=== PATIENT | male | born 1975 | race Caucasian/White ===

== ENCOUNTER 2016-12-11 14:07 | Emergency (ER) | payer OTHER, MEDICAID ==
[2016-12-11 14:07] VITALS: BMI 30.4
[2016-12-11] MEDS ORDERED: Dexamethasone 4 mg/1 ml IVP STA (14:55)
--- NOTE | 2016-12-11 15:06 | C.PDOC ---
History Of Present Illness 41 yr old male presents to the ER with complaints of numbness to the left thumb and aching in the lateral aspect of the left upper arm for the past several weeks. Patient states he is able to use his arm normally. Patient reports someone suggested it could be related to a stroke so decided to come in. Patient reports he has a "pinched nerve" in the upper back years ago. Also states when he tilts his head left the numbness in the thumb gets worse. Patient denies fever, chills, chest pain, SOB, nausea, vomiting, abdominal pain , diarrhea, neck pain, headache, weakness or numbness. Time Seen by Provider: 12/11/16 14:44 Chief Complaint (Nursing): Medical Clearance History Per: Patient History/Exam Limitations: no limitations Onset/Duration Of Symptoms: Persistent (Several weeks) Past Medical History Reviewed: Historical Data, Nursing Documentation, Vital Signs Vital Signs: Last Vital Signs Temp 97.9 F 12/11/16 14:21 Pulse 82 12/11/16 14:21 Resp 20 12/11/16 14:21 BP 158/98 H 12/11/16 14:21 Pulse Ox 96 12/11/16 15:10 - Medical History PMH: Gastritis, HTN - [facility] Procedures EXCISION OF DUODENUM, ENDO, DIAGN (03/15/16) Family History: States: No Known Family Hx - Social History Hx Tobacco Use: Yes (1 ppd) Hx Alcohol Use: Yes Hx Substance Use: Yes (cocaine) - Immunization History Hx Tetanus Toxoid Vaccination: No Hx Influenza Vaccination: No Hx Pneumococcal Vaccination: No Review Of Systems Except As Marked, All Systems Reviewed And Found Negative. Constitutional: Negative for: Fever, Chills Cardiovascular: Negative for: Chest Pain Respiratory: Negative for: Shortness of Breath Gastrointestinal: Negative for: Nausea, Vomiting, Abdominal Pain, Diarrhea Musculoskeletal: Positive for: Other ((+) Numbness in the left thumb. Aching in the lateral aspect of left upper arm. ). Negative for: Neck Pain Neurological: Negative for: Weakness, Numbness, Headache Physical Exam - Physical Exam Appears: Well, Non-toxic, No Acute Distress Skin: Warm, Dry Head: Atraumatic, Normacephalic Oral Mucosa: Moist Neck: Normal, Normal ROM, Supple Chest: Symmetrical, No Tenderness Cardiovascular: Rhythm Regular, No Murmur Respiratory: Normal Breath Sounds, No Rales, No Rhonchi, No Stridor, No Wheezing Extremity: Normal ROM, No Tenderness, No Swelling, Other (Left Thumb - Good sensations. Good motor. Normal pulses. ) Pulses: Left Radial: Normal, Right Radial: Normal Neurological/Psych: Oriented x3, Normal Speech, Normal Motor, Normal Sensation, Normal Reflexes Gait: Steady ED Course And Treatment O2 Sat by Pulse Oximetry: 96 Pulse Ox Interpretation: Normal - Other Rad Cervical spine X-Ray: Interpreted by Me Interpretation: Med evidence of fracture, dislocation or soft tissue swelling. Normal curvature Progress Note: Patient treated with Decadro 10mg IM in Ed. Reevaluation Time: 15:15 Reassessment Condition: Unchanged Medical Decision Making Medical Decision Making: PLAN: * X-Ray - Cervical Spine * Decadron IVP Disposition Counseled Patient/Family Regarding: Studies Performed, Diagnosis, Need For Followup, Rx Given - Disposition Disposition: HOME/ ROUTINE Disposition Time: 15:18 Condition: STABLE Additional Instructions: Follow up with your doctor at [facility] if symptoms do not improve after taking the Medrol Pack. Prescriptions: Methylprednisolone [Medrol Dose Pack (21 tabs)] 4 mg PO DAILY #21 mg Instructions: Cervical Radiculopathy (ED) - Clinical Impression Clinical Impression: Cervical neuritis - Scribe Statement The provider has reviewed the documentation as recorded by the Oxana Sawant Provider Attestation: All medical record entries made by the Oxana were at my direction and personally dictated by me. I have reviewed the chart and agree that the record accurately reflects my personal performance of the history, physical exam, medical decision making, and the department course for this patient. I have also personally directed, reviewed, and agree with the discharge instructions and disposition.
[2016-12-11] MEDS ORDERED: Dexamethasone 4 mg/1 ml IM STA (15:17)
[2016-12-11] MEDS ORDERED: Dexamethasone 4 mg/1 ml ONE (15:20)
[2016-12-11 15:26] VITALS: BP 134/71; PULSE 75; RESP 16; TEMP 98.2; O2SAT 100
--- NOTE | 2016-12-11 15:52 | RAD ---
PROCEDURE: Cervical Spine Radiographs. HISTORY: Pain. COMPARISON: None available. FINDINGS: BONES: Straightening of the normal cervical lordosis may be related to muscle spasm or positioning. Degenerative changes. No acute displaced fracture identified. Dens tip partially obscured ; visualized portions of the dens tip appears intact. DISC SPACES: Unremarkable. SOFT TISSUES: Unremarkable. No prevertebral soft tissue swelling. OTHER FINDINGS: None. IMPRESSION: Straightening of the normal cervical lordosis may be related to muscle spasm or positioning. No acute displaced fracture identified. Dens tip partially obscured ; visualized portions of the dens tip appears intact. Degenerative changes.
== END 2016-12-11 15:24 | disposition home or self-care (01) ==
LOC: C.ER 14:07
DX: G58.8 Other specified mononeuropathies (principal)
CPT/HCPCS: 72040; 96372; 99285; J1100

== ENCOUNTER 2018-02-05 10:19 | Emergency (ER) | payer OTHER ==
[2018-02-05 10:19] VITALS: BMI 30.4
[2018-02-05] MEDS ORDERED: Sodium Chloride 0.9% 1,000 ML IV ONE (10:57)
[2018-02-05] MEDS ORDERED: DiphenhydrAMINE 50 mg/ml Inj IVP STA (11:01)
[2018-02-05] MEDS ORDERED: Sodium Chloride 0.9% 1,000 ML ONE (11:20)
[2018-02-05] MEDS ORDERED: DiphenhydrAMINE 50 mg/ml Inj ONE (11:20)
--- NOTE | 2018-02-05 11:22 | C.PDOC ---
History Of Present Illness 42 year old male, whose PMHx includes HTN (non-compliant with medications) presents to the ED for evaluation of right-sided headache which gradually developed over the past week. Patient describes his headache as a throbbing sensation that is non-radiating and is localized over his right baptism region. Patient also reports positive noise sensitivity. Patient also complains of right upper tooth pain which developed over the past few days. He reports associated gum pain and swelling. Also "noted some boil to my Right lower face area" for past few days. Otherwise, Patient denies fever, chills, denies worsen headache of life, dizziness, vertigo, visual changes, focal deficits, chest pain , shortness of breath, dyspnea, palpitation, nausea, vomiting, and extremity numbness/weakness. Ambulate to ED for evaluation, not in any apparent distress. Time Seen by Provider: 02/05/18 10:41 Chief Complaint (Nursing): Headache History Per: Patient History/Exam Limitations: no limitations Onset/Duration Of Symptoms: Days Current Symptoms Are (Timing): Still Present Quality: Aching Associated Symptoms: Other (noise sensitivity). denies: Nausea, Vomiting Additional History Per: Patient Past Medical History Reviewed: Historical Data, Nursing Documentation, Vital Signs Vital Signs: Last Vital Signs Temp 98.4 F 02/05/18 13:43 Pulse 84 02/05/18 13:43 Resp 20 02/05/18 13:43 BP 134/87 02/05/18 13:43 Pulse Ox 97 02/05/18 13:43 - Medical History PMH: Gastritis, HTN Surgical History: No Surg Hx - [facility] Procedures EXCISION OF DUODENUM, ENDO, DIAGN (03/15/16) Family History: States: Unknown Family Hx - Social History Hx Tobacco Use: Yes (1 ppd) Hx Alcohol Use: Yes Hx Substance Use: Yes (cocaine) - Immunization History Hx Tetanus Toxoid Vaccination: No Hx Influenza Vaccination: No Hx Pneumococcal Vaccination: No Review Of Systems Constitutional: Negative for: Fever, Chills ENT: Positive for: Mouth Pain (right upper tooth ache ) Neurological: Positive for: Headache. Negative for: Dizziness Physical Exam - Physical Exam Appears: Well, Non-toxic, No Acute Distress Skin: Warm, Dry, Other (1cm diameter tender mass to right lower jaw with + erythema. no fluctuance. no facial cellulitis or abscess) Head: Normacephalic Eye(s): bilateral: PERRL Ear(s): Bilateral: Normal Nose: No Flaring, No Discharge, No Deformity Oral Mucosa: Moist, No Drooling, No Trismus Tongue: Normal Appearing Lips: Normal Appearing Teeth: Tender To Palpation (#4-3) Gingiva: Erythema (#4-3), Swelling (#4-3), Tender (#4-3) Throat: No Erythema, No Exudate, No Drooling Neck: Normal ROM, Trachea Midline, Supple Chest: Symmetrical, No Deformity, No Tenderness Cardiovascular: Rhythm Regular, No Murmur Respiratory: No Accessory Muscle Use, No Stridor, No Wheezing Gastrointestinal/Abdominal: Soft, No Tenderness, No Distention, No Guarding, No Rebound Extremity: Normal ROM, Capillary Refill (less than 2 seconds ) Neurological/Psych: Oriented x3, Normal Speech, Normal Motor, Normal Sensation, Normal Reflexes ED Course And Treatment - Laboratory Results Result Diagrams: 02/05/18 11:16 02/05/18 11:16 Lab Interpretation: No Acute Changes ECG: Interpreted By Me, Viewed By Me ECG Rhythm: Sinus Rhythm Interpretation Of ECG: SR@88/min, NAD, no acute T wave or ST-T changes. O2 Sat by Pulse Oximetry: 99 (on RA) Pulse Ox Interpretation: Normal - CT Scan/US CT head w/o contrast Other Rad Studies (CT/US): Radiology Report Reviewed CT/US Interpretation: reator : Jelly Boles. Dictator : Latrell Watson MD. Book Sewing Machine Operator : Medical Record Assistant : Latrell Watson MD. Approver2 : Report Date : 02/05/2018 11:43:36. My Comment : . PROCEDURE: CT HEAD WITHOUT CONTRAST. HISTORY: headcahe, HTN. COMPARISON: None available. TECHNIQUE: Axial computed tomography images were obtained through the head/brain without intravenous contrast. Radiation dose: Total exam DLP = 953.95 mGy-cm. This CT exam was performed using one or more of the following dose reduction techniques: Automated exposure control, adjustment of the mA and/or kV according to patient size, and/or use of iterative reconstruction technique. FINDINGS: HEMORRHAGE: No intracranial hemorrhage. BRAIN: No mass effect or edema. No atrophy or chronic microvascular ischemic changes. VENTRICLES: Unremarkable. No hydrocephalus. CALVARIUM: Unremarkable. PARANASAL SINUSES: Chronic ethmoid and sphenoid sinusitis. MASTOID AIR CELLS: Unremarkable as visualized. No inflammatory changes. OTHER FINDINGS: None. IMPRESSION: Normal CT of the Head. No intracranial mass, hemorrhage or evidence of acute infarct. Mild chronic paranasal sinusitis as above. Progress Note: Bloodwork, urinalysis, CT Head, EKG ordered and reviewed. Benadryl IVP, Toradol IM, Zofran IVP, and IV Fluids administered. Pt was OBS in ED for 2.5 hours and remained stable. On re-evaluation, pt reports moderate improvement in sx. Pt is afebrile, hemodynamicaly stable. Non-toxic. Tolerate Po well in ED. PulseOx 99% rA. Neck: SUpple, (-) meningeal sign. ENT: exam c /w #4-3 gingivitis r/o early abscess. No facial edema or cellulitis. uvula midline, no edema. No drooling, no trismus. Lungs: CTA B/L, BS equal B/L. CVS : (+)S1S2, reg. Abd: benign, (-) guarding, (-) rebound, (-) RLQ tenderness. Neurologicaly intact. Skin: (+) small carbuncles Right lower face, no flactulance. Blood work review- no acute abnormalities. UA results review and appears normal. CT head: (+) mild chronic paranasal sinusitis. No acute ICH, no mass effect. Pt has clinical findings c/w Right sided headachr /o migraine headache, Right tooth abscess, Right facial carbuncle. Pt advised. ref. to F/ u with PMD, Derm, Dentist in 2-3 days for re-eval. return if any worsening or new changes. Disposition Counseled Patient/Family Regarding: Studies Performed, Diagnosis, Need For Followup, Rx Given - Disposition Referrals: [facility] [Outside] [facility] [Provider Group] [facility] [Provider Group] Disposition: HOME/ ROUTINE Disposition Time: 12:39 Condition: STABLE Additional Instructions: Warm salty water compresses to Right lower face area of painful mass 2-3 times daily for 5 minutes Take medication as prescribed Follow up with PMD, Dentist and Dermatology in 2-3 days for re-evaluation. return to ED if any worsening or new changes. Prescriptions: Amoxicillin/Clavulanate [Augmentin 875 MG-125 MG] 1 tab PO BID #14 tab traMADol [Ultram] 50 mg PO TID #10 tab Instructions: Migraine Headache (DC), Folliculitis (DC), Tooth Abscess (DC) Forms: [employer] (Moroccan), Work Excuse - Clinical Impression Clinical Impression: Headache, Tooth abscess, Furuncle of face - PA / HORTICULTURAL WORKER / Resident Statement MD/DO has reviewed & agrees with the documentation as recorded. - Scribe Statement The provider has reviewed the documentation as recorded by the Scribe (Kenia Sahu) All medical record entries made by the Scribe were at my direction and personally dictated by me. I have reviewed the chart and agree that the record accurately reflects my personal performance of the history, physical exam, medical decision making, and the department course for this patient. I have also personally directed, reviewed, and agree with the discharge instructions and disposition.
[2018-02-05 11:25] LABS: BASO # 0.1 K/uL (0.0-0.2); BASO % 0.7 % (0.0-2.0); EOS # 0.2 K/uL (0.0-0.7); EOS % 2.4 % (0.0-4.0); HEMOGLOBIN 13.8 g/dL (12.0-18.0); LYMPH # 1.8 K/uL (1.0-4.3); MEAN CELL VOLUME 71.3 fL (80.0-94.0); MEAN CORPUSCULAR HEMOGLOBIN 23.5 pg (27.0-31.0); MEAN PLATELET VOLUME 8.2 fL (7.2-11.7); MONO # 0.7 K/uL (0.0-0.8); NEUT # 7.2 K/uL (1.8-7.0); NEUT % 71.9 % (50.0-75.0); NRBC % 0.1 % (0.0-2.0); RBC 5.87 Mil/uL (4.40-5.90); RED CELL DISTRIBUTION WIDTH 15.6 % (11.5-14.5); WHITE BLOOD COUNT 10.1 K/uL (4.8-10.8)
[2018-02-05 11:30] LABS: ALB/GLOB RATIO 1.3 (1.0-2.1); ALBUMIN 4.2 g/dL (3.5-5.0); ALT/SGPT 23 U/L (21-72); AST/SGOT 26 U/L (17-59); BLOOD UREA NITROGEN 7 mg/dL (9-20); GFR AFRICAN-AMERICAN > 60; GFR NON-AFRICAN AMERICAN > 60
[2018-02-05 11:42] LABS: INR 1.3; PROTHROMBIN TIME 14.2 SECONDS (9.7-12.2)
--- NOTE | 2018-02-05 12:12 | CT ---
PROCEDURE: CT HEAD WITHOUT CONTRAST. HISTORY: headcahe, HTN COMPARISON: None available. TECHNIQUE: Axial computed tomography images were obtained through the head/brain without intravenous contrast. Radiation dose: Total exam DLP = 953.95 mGy-cm. This CT exam was performed using one or more of the following dose reduction techniques: Automated exposure control, adjustment of the mA and/or kV according to patient size, and/or use of iterative reconstruction technique. FINDINGS: HEMORRHAGE: No intracranial hemorrhage. BRAIN: No mass effect or edema. No atrophy or chronic microvascular ischemic changes. VENTRICLES: Unremarkable. No hydrocephalus. CALVARIUM: Unremarkable. PARANASAL SINUSES: Chronic ethmoid and sphenoid sinusitis. MASTOID AIR CELLS: Unremarkable as visualized. No inflammatory changes. OTHER FINDINGS: None. IMPRESSION: Normal CT of the Head. No intracranial mass, hemorrhage or evidence of acute infarct. Mild chronic paranasal sinusitis as above.
[2018-02-05 12:23] LABS: SQUAMOUS EPITHIAL < 1 /hpf (0-5); URINE BILIRUBIN NEGATIVE (NEGATIVE); URINE BLOOD NEGATIVE (NEGATIVE); URINE CLARITY Clear (Clear); URINE COLOR Yellow (YELLOW); URINE GLUCOSE (UA) NORMAL (Normal); URINE LEUKOCYTE ESTERASE NEG Leu/uL (Negative); URINE PROTEIN NEGATIVE (NEGATIVE); URINE UROBILINOGEN NORMAL mg/dL (0.2-1.0)
[2018-02-05] MEDS ORDERED: Piperacillin/Tazobact 3.375 GM in Sodium Chloride 100 ML IVPB STA (12:32)
[2018-02-05 12:44] LABS: BARBITURATES, UR NEGATIVE (NEGATIVE); BENZODIAZEPINES, UR NEGATIVE (NEGATIVE); OPIATES, UR NEGATIVE (NEGATIVE); PHENCYCLIDINE, UR NEGATIVE (NEGATIVE)
[2018-02-05] MEDS ORDERED: Piperacillin/Tazobact 3.375 gm 100 ML IVPB ONE (12:58)
[2018-02-05 13:46] VITALS: BP 134/87; PULSE 84; RESP 20; TEMP 98.4
[2018-02-05 16:23] VITALS: O2SAT 99
--- NOTE | 2018-02-07 22:39 | CARD ---
APPROVED REPORT EKG Measurement Heart [id number] <Conclusion> Normal sinus rhythm Possible Left atrial enlargement Borderline ECG
== END 2018-02-05 13:46 | disposition home or self-care (01) ==
LOC: C.ER 10:19
DX: R51 Headache (principal); K04.7 Periapical abscess without sinus; L02.02 Furuncle of face; I10 Essential (primary) hypertension; F17.210 Nicotine dependence, cigarettes, uncomplicated
CPT/HCPCS: 70450; 80053; 80324; 80345; 80346; 80349; 80353; 80358; 80361; 81001; 82550; 83992; 84484; 85025; 85610; 85730; 93005; 96361; 96365; 96375; 99285; J1200; J1885; J2405; J2543; J7030; J7050

== ENCOUNTER 2018-03-25 15:41 | Emergency (ER) | payer OTHER ==
[2018-03-25 15:41] VITALS: BMI 30.4
[2018-03-25 16:57] LABS: BASO # 0.1 K/uL (0.0-0.2); EOS # 0.3 K/uL (0.0-0.7); EOS % 2.8 % (0.0-4.0); HEMOGLOBIN 13.4 g/dL (12.0-18.0); LYMPH % 31.9 % (20.0-40.0); MEAN CELL VOLUME 71.3 fL (80.0-94.0); MEAN CORPUSCULAR HEMOGLOBIN 23.6 pg (27.0-31.0); MEAN CORPUSCULAR HGB CONC 33.1 g/dL (33.0-37.0); MEAN PLATELET VOLUME 8.5 fL (7.2-11.7); MONO # 0.8 K/uL (0.0-0.8); MONO % 8.1 % (0.0-10.0); NEUT # 5.4 K/uL (1.8-7.0); NEUT % 56.2 % (50.0-75.0); RBC 5.67 Mil/uL (4.40-5.90); RED CELL DISTRIBUTION WIDTH 15.3 % (11.5-14.5); WHITE BLOOD COUNT 9.6 K/uL (4.8-10.8)
[2018-03-25 17:05] VITALS: RESP 16; O2SAT 98
--- NOTE | 2018-03-25 17:10 | RAD ---
Date of service: 03/25/2018 HISTORY: chest pain COMPARISON: No prior. TECHNIQUE: Chest PA and lateral FINDINGS: LUNGS: No active pulmonary disease. PLEURA: No significant pleural effusion identified. No pneumothorax apparent. CARDIOVASCULAR: Normal. OSSEOUS STRUCTURES: No significant abnormalities. VISUALIZED UPPER ABDOMEN: Normal. OTHER FINDINGS: None. IMPRESSION: No active disease.
[2018-03-25 17:16] LABS: ALB/GLOB RATIO 1.2 (1.0-2.1); ALBUMIN 4.1 g/dL (3.5-5.0); ALT/SGPT 28 U/L (21-72); AST/SGOT 25 U/L (17-59); BLOOD UREA NITROGEN 8 mg/dL (9-20); GFR AFRICAN-AMERICAN > 60; GFR NON-AFRICAN AMERICAN > 60
--- NOTE | 2018-03-25 17:24 | C.PDOC ---
History Of Present Illness 42 y/o M p/w pain radiating from posterior L sided neck, down L arm and numbness. He states he has been seen for this pain before and informed that he has a pinched nerve. He went to physical therapy but it has persisted. He also notes that it radiates to the L side of the chest. Denies new injury, motor weakness, dyspnea. Time Seen by Provider: 03/25/18 16:21 Chief Complaint (Nursing): Headache Past Medical History Vital Signs: Last Vital Signs Temp 99 F 03/25/18 15:47 Pulse 96 H 03/25/18 17:05 Resp 16 03/25/18 17:05 BP 125/79 03/25/18 17:05 Pulse Ox 98 03/25/18 17:27 - Medical History PMH: Gastritis, HTN (NOT TAKING MEDICATION PER PATIENT) - [facility] Procedures EXCISION OF DUODENUM, ENDO, DIAGN (03/15/16) Family History: States: Unknown Family Hx - Social History Hx Tobacco Use: Yes (1 ppd) Hx Alcohol Use: Yes Hx Substance Use: Yes (cocaine) - Immunization History Hx Tetanus Toxoid Vaccination: No Hx Influenza Vaccination: No Hx Pneumococcal Vaccination: No Review Of Systems Except As Marked, All Systems Reviewed And Found Negative. Constitutional: Negative for: Fever Respiratory: Negative for: Shortness of Breath Physical Exam - Physical Exam Additional Physical Exam Comments: Constitutional: No acute distress. Head: Normocephalic. Atraumatic. Eyes: PERRL. ENT: Moist mucous membranes. Neck: Supple. No midline cervical tenderness. Cardiovascular: Regular rate. Radial pulse 2+ bilaterally. Chest: No tenderness. Respiratory: Clear to auscultation bilaterally. GI: Soft. Nontender. Nondistended. Back: No CVA tenderness. Musculoskeletal: No tenderness or swelling of extremities. Skin: No rash. Neurologic: Alert, no focal deficit. ED Course And Treatment - Laboratory Results Result Diagrams: 03/25/18 16:32 03/25/18 16:52 O2 Sat by Pulse Oximetry: 98 Medical Decision Making Medical Decision Making: CXR no acute pathology Physical exam and history consistent with radiculopathy. Will advise continued oral medication, f/u primary care, perhaps inquire about surgical intervention as persistent despite physical therapy. Disposition - Disposition Disposition: HOME/ ROUTINE Disposition Time: 17:48 Condition: STABLE Prescriptions: Ibuprofen [Motrin] 600 mg PO Q6 #25 tab Methocarbamol [Robaxin-750] 1 tab PO Q8H #12 tablet Instructions: Radiculopathy Forms: [employer] (Sinhala) - Clinical Impression Clinical Impression: Radiculopathy
[2018-03-25 17:28] LABS: CK-MB 1.07 ng/mL (0.0-3.38)
[2018-03-25 18:01] VITALS: BP 117/84; PULSE 93; TEMP 98.4
--- NOTE | 2018-03-26 23:17 | CARD ---
APPROVED REPORT Date of service: 03/25/2018 EKG Measurement Heart [id number] <Conclusion> Normal sinus rhythm Normal ECG
== END 2018-03-25 18:01 | disposition home or self-care (01) ==
LOC: C.ER 15:41
DX: M54.10 Radiculopathy, site unspecified (principal); I10 Essential (primary) hypertension; F17.210 Nicotine dependence, cigarettes, uncomplicated
CPT/HCPCS: 71046; 80053; 82550; 82553; 84484; 85025; 93005; 96374; 99285; J1885